=== PATIENT | male | born 1990 | race Caucasian/White ===

== ENCOUNTER 2017-10-09 05:07 | Emergency (ER) | payer OTHER ==
[~2017-10-09] VITALS: Ht 195.6 cm; Wt 103.4 kg
[~2017-10-09 05:07] MED LIST: AUGMENTIN80 MG/ML PO; AURAX OTIC SOLU14 ML LEFT EAR; CLARITIN10 M3 PO; DAILY VALUE1 EACH PO; DOCU LIQUI50 MG/5 ML PO; IMODIUM A-1 MG/7.5 M PO; MIRALAX255 GM PO; MOTRIN600 MG PO; MULTI-DAY VITA1 EACH PO; NYQUIL D COLD295 ML PO; PREDNISOLO15 MG/5 M1 PO; PREDNISONE20 MG PO; [UNRECOGNIZED DRUG - OTHER] PO
[2017-10-09] MEDS ORDERED: OMNICEF50 MG/1 ML PO (05:43)
[2017-10-09 06:52] VITALS: BP 118/83
== END 2017-10-09 06:53 | disposition home or self-care (01) ==
LOC: EME 05:07
DX: H65.01 Acute serous otitis media, right ear (principal); R51 Headache; B20 Human immunodeficiency virus [HIV] disease; Z88.0 Allergy status to penicillin
CPT/HCPCS: 99281; 99283